=== PATIENT | male | born 1990 | race African-American/Black ===

== ENCOUNTER 2023-07-16 12:55 | Emergency (ER) | payer OTHER, SELFPAY ==
[2023-07-16 12:59] VITALS: BP 121/88; PULSE 91; RESP 16; TEMP 36.8; O2SAT 100
[2023-07-16 13:17] VITALS: BP 120/90; PULSE 71; RESP 23; TEMP 36.9; O2SAT 100
--- NOTE | 2023-07-16 13:26 | ED.GENADULT ---
HPI - General Adult General Chief complaint: Weakness Stated complaint: cramping working outside Time Seen by Provider: 07/16/23 13:05 History of Present Illness HPI narrative: 32-year-old male presented the emergency department for evaluation of dehydration and cramping. Patient states he has been working outside the last few days, he has been drinking a lot of water but states he has not been drinking very many electrolytes. Patient states he began developing the cramping nausea and abdominal pain today. Patient did receive 1.2 L of saline by EMS. Patient denies any significant underlying past medical history. Related Data Allergies Allergy/AdvReac Type Severity Reaction Status Date / Time No Known Allergies Allergy Verified 07/16/23 13:15 Review of Systems Review of Systems: All systems reviewed & are unremarkable except as noted in HPI and below Exam Narrative: APPEARANCE: Uncomfortable appearing due to cramping HEAD: normocephalic, atraumatic. EYES: PERRLA/EOMI, conjunctivae clear. NOSE: Normal no drainage EARS:TMS clear with good light reflex. THROAT: Pharynx clear, no exudate. NECK: Supple. No adenopathy, no masses. RESPIRATORY: Airway patent, respirations nonlabored. Clear to auscultation bilaterally, no rales, rhonchi, wheezing. CARDIOVASCULAR: Regular rate and rhythm without murmurs rubs or gallops. ABDOMINAL: Diffuse tenderness MUSCULOSKELETAL: Moves all extremities. Strength/ROM intact, No edema, No calf tenderness. NEURO: Alert. Cranial nerves II through XII intact. Grossly intact SKIN: Warm, dry. Normal Color Course Course Emergency Course: 32-year-old male presented ED for evaluation of nausea vomiting abdominal cramping secondary to dehydration working in the heat. Patient did receive approximately 2 L of fluids by EMS and additional lactated Ringer's was started. Patient was provided IV Zofran for pain control. On reevaluation patient reports he does feel improved. Patient was afebrile with no leukocytosis. Patient initially had an elevated creatinine but this did normalize after rehydration. Patient also had an elevated lactic acid that also normalized. Patient had an elevated creatinine kinase that was not rechecked. Patient was making urine prior to discharge. Patient was updated results of his work-up was encouraged of close follow-up with his primary care physician and to maintain his hydration. All questions and concerns were addressed and patient was comfortable with the plan for discharge and close follow-up. Vital Signs Vital signs: Vital Signs Temperature 98.3 F 07/16/23 12:59 Pulse Rate 91 07/16/23 12:59 Respiratory Rate 16 07/16/23 12:59 Blood Pressure 121/88 07/16/23 12:59 Pulse Oximetry 100 07/16/23 12:59 Oxygen Delivery Room Air 07/16/23 12:59 Temperature 98.3 F 07/16/23 16:05 Pulse Rate 82 07/16/23 16:05 Respiratory Rate 17 07/16/23 16:05 Blood Pressure 120/90 07/16/23 13:17 Pulse Oximetry 100 07/16/23 16:05 Oxygen Delivery Room Air 07/16/23 12:59 Medical Decision Making Differential Diagnosis Differential Diagnosis: Acute kidney injury, rhabdomyolysis, dehydration, hypokalemia, hyponatremia, hypomagnesemia, lactic acidosis, past medical history:[] Social history:[] Vital Signs Vital Signs: Vital Signs Temperature 98.3 F 07/16/23 12:59 Pulse Rate 91 07/16/23 12:59 Respiratory Rate 16 07/16/23 12:59 Blood Pressure 121/88 07/16/23 12:59 Pulse Oximetry 100 07/16/23 12:59 Oxygen Delivery Room Air 07/16/23 12:59 Temperature 98.3 F 07/16/23 16:05 Pulse Rate 82 07/16/23 16:05 Respiratory Rate 17 07/16/23 16:05 Blood Pressure 120/90 07/16/23 13:17 Pulse Oximetry 100 07/16/23 16:05 Oxygen Delivery Room Air 07/16/23 12:59 Lab Data Lab results reviewed: Yes I reviewed the patient's lab results. 07/16/23 13:38 07/16/23 15:37 Labs: Lab Results
[2023-07-16] MEDS: ONDANSETRON INJ 4 MG/2 ML VIAL IV PUSH (13:31)
[2023-07-16] MEDS: LACTATED RINGERS 1,000 ML 999 ML IV CONT ×2 (13:33→14:09)
[2023-07-16 13:46] LABS: Basophils Percent Auto 0.2 % (0.2-1.2); Eosinophils Percent Auto 0.2 % (0-4.4); Hematocrit 46.1 % (42.0-52.0); Hemoglobin 15.8 g/dL (14.0-18.0); Immature Granulocyte Absolute 0.03 K/mm3 (0.00-0.031); Immature Granulocyte Percent A 0.3 % (0-0.5); Lymphocytes Absolute Auto 1.81 K/mm3 (0.9-3.2); Lymphocytes Percent Auto 19.4 % (18.3-44.2); Mean Corpuscular HGB Conc 34.3 g/dl (32-36); Mean Corpuscular Hemoglobin 30.4 pg (26-34); Mean Corpuscular Volume 88.8 fl (80-100); Mean Platelet Volume 10.4 fl (7.4-10.4); Monocytes Absolute Auto 1.1 K/mm3 (0.1-0.6); Monocytes Percent Auto 12.2 % (2.6-8.5); Neutrophils Absolute Auto 6.3 K/mm3 (1.3-6.7); Neutrophils Percent Auto 67.7 % (45.5-73.1); Platelet Count Result 240 k/mm3 (150-375); Red Blood Count 5.19 M/mm3 (4.6-6.20); Red Cell Distribution Width 12.3 % (11.5-14.5); White Blood Count 9.3 K/mm3 (4.5-10.0)
[2023-07-16 13:54] LABS: Lactic Acid Reflex 2.9 mmol/L (0.7-2.0)
[2023-07-16 13:55] LABS: Alanine Aminotransferase 25 U/L (6-50); Albumin Level 5.3 g/dL (3.5-5.1); Alkaline Phosphatase 83 U/L (38-126); Anion Gap 18 mmol/L (8-16); Aspartate Amino Transferase 30 U/L (17-59); Bilirubin,Total 0.9 mg/dL (0.2-1.3); Blood Urea Nitrogen 20 mg/dL (9-20); Calcium 10.2 mg/dL (8.4-10.2); Carbon Dioxide 15 mmol/L (22-30); Chloride 102 mmol/L (98-107); Creatine Kinase 410 U/L (55-170); Estimated CRCL calculation 78 ml/min; Estimated Glomerular Filt Rate 60; Glucose 96 mg/dL (65-110); Potassium 3.7 mmol/L (3.4-5.0); Sodium 135 mmol/L (137-145)
[2023-07-16 15:52] LABS: Anion Gap 11 mmol/L (8-16); Blood Urea Nitrogen 17 mg/dL (9-20); Calcium 9.3 mg/dL (8.4-10.2); Carbon Dioxide 19 mmol/L (22-30); Chloride 104 mmol/L (98-107); Estimated CRCL calculation 99 ml/min; Estimated Glomerular Filt Rate > 60; Glucose 87 mg/dL (65-110); Potassium 3.7 mmol/L (3.4-5.0); Sodium 134 mmol/L (137-145)
[2023-07-16 15:53] LABS: Lactic Acid Reflex 1.1 mmol/L (0.7-2.0)
[2023-07-16 16:05] VITALS: PULSE 82; RESP 17; TEMP 36.8; O2SAT 100
[2023-07-16 16:43] LABS: Reflex Lactic Acid Yes or No Add Lactic
== END 2023-07-16 16:08 | disposition home or self-care (01) ==
PROVIDERS: Emergency Provider Emergency Medicine
DX: E86.0 Dehydration (principal)
CPT/HCPCS: 36415; 80048; 80053; 82550; 83605; 85025; 96361; 96374; 99284; J2405; J7120